=== PATIENT | male | born 1995 | race Caucasian/White ===

== ENCOUNTER 2024-11-15 12:53 | Emergency (ER) | payer SELFPAY ==
[~2024-11-15 12:53] MED LIST: Iopamidol 370 76% 100 ML VIAL ONE
[2024-11-15] MEDS ORDERED: Ibuprofen 800 MG TAB ONE (13:20)
[2024-11-15] MEDS ORDERED: Acetaminophen 500 MG TAB ONE (13:20)
[2024-11-15 13:35] LABS: Bilirubin Negative (Negative); Blood, Urine Negative (Negative); Clarity Clear (Clear); Glucose, Urine (Dipstick) Negative (Negative); Ketone, Urine Negative (Negative); Leukocyte Negative (Negative); Nitrite Negative (Negative); Protein, Urine (Dipstick) Negative (Neg-Trace); Urobilinogen 0.2 mg/dL (Less than 2)
[2024-11-15 13:46] LABS: CAUTI Indications for Culture Pelvic or flank pain; RBC/HPF 0-3 HPF (0-3); Squamous Epithelial 0-3 HPF (0-3); WBC/HPF 0-3 HPF (0-3)
[2024-11-15 13:47] LABS: Bacteria/HPF Rare-Few HPF (None Seen)
[2024-11-15 13:48] LABS: Urine Culture Reflex No No
== END 2024-11-15 14:40 | disposition home or self-care (01) ==
LOC: MADERS 12:53
DX: S20.212A Contusion of left front wall of thorax, initial encounter (principal); S29.012A Strain of muscle and tendon of back wall of thorax, initial encounter; S21.209A Unspecified open wound of unspecified back wall of thorax without penetration into thoracic cavity, initial encounter; S00.83XA Contusion of other part of head, initial encounter; V89.2XXA Person injured in unspecified motor-vehicle accident, traffic, initial encounter
CPT/HCPCS: 70450; 71260; 72125; 74177; 81001; G0390; Q9967